=== PATIENT | female | born 2000 | race African-American/Black ===

== ENCOUNTER 2018-03-09 23:26 | Emergency (ER) | payer OTHER, SELFPAY ==
--- NOTE | 2018-03-10 06:36 | RAD ---
SECOND DIGIT LEFT HAND THREE VIEWS: INDICATIONS: Injury with pain. FINDINGS: There is no fracture or dislocation of the second digit, left hand. No radiopaque foreign body. IMPRESSION: No acute osseous abnormality of the left second digit. POS: [facility]
== END 2018-03-10 00:50 | disposition home or self-care (01) ==
LOC: SCSER 23:26
DX: S67.191A Crushing injury of left index finger, initial encounter (principal); S60.122A Contusion of left index finger with damage to nail, initial encounter; W22.8XXA Striking against or struck by other objects, initial encounter
CPT/HCPCS: 11740

== ENCOUNTER 2018-06-25 14:56 | Emergency (ER) | payer SELFPAY ==
[2018-06-25] MEDS ORDERED: Morphine 2 MG/ML SYRINGE ONE (15:17)
--- NOTE | 2018-06-25 15:43 | RAD ---
LEFT KNEE THREE VIEWS: INDICATIONS: Left leg deformity. COMPARISON: None. FINDINGS: There is lateral subluxation of the patella. The left knee is held in a flexed position. No definit e acute fracture is evident, within the limitations of the exam. IMPRESSION: Lateral subluxation/dislocation of the patella. POS: [facility]
--- NOTE | 2018-06-25 16:34 | RAD ---
FOUR VIEWS LEFT KNEE: Comparison: None. History: Reduction of dislocation. Comparison: 06-25-18 at 2:15 p.m. FINDINGS: Four views of the left knee shows reduction of the previously seen patellar dislocation. No fracture is seen. No knee effusion is seen. IMPRESSION: Reduction of patellar dislocation. POS: [facility]
== END 2018-06-25 17:13 | disposition home or self-care (01) ==
LOC: ERS 14:56
DX: S83.015A Lateral dislocation of left patella, initial encounter (principal); F31.9 Bipolar disorder, unspecified; W22.8XXA Striking against or struck by other objects, initial encounter
CPT/HCPCS: 96374; J2270

== ENCOUNTER 2018-08-14 00:05 | Emergency (ER) | payer SELFPAY ==
[2018-08-14] MEDS ORDERED: Lidocaine 1% w/Epinephrine 1:100K 20 ML VIAL ONE (01:40)
== END 2018-08-14 02:11 | disposition home or self-care (01) ==
LOC: ERS 00:05
DX: S01.81XA Laceration without foreign body of other part of head, initial encounter (principal); F31.9 Bipolar disorder, unspecified; Y00.XXXA Assault by blunt object, initial encounter
CPT/HCPCS: 12011; J2001

== ENCOUNTER 2019-01-23 22:56 | Emergency (ER) | payer SELFPAY | END 2019-01-23 23:53 | disposition home or self-care (01) | LOC: SCSER 22:56 | DX: L03.113 Cellulitis of right upper limb (principal); F31.9 Bipolar disorder, unspecified | CPT/HCPCS: 99283 ==

== ENCOUNTER 2019-04-22 07:22 | Emergency (ER) | payer SELFPAY | END 2019-04-22 08:33 | disposition home or self-care (01) | LOC: ERS 07:22 | DX: K60.2 Anal fissure, unspecified (principal); F31.9 Bipolar disorder, unspecified | CPT/HCPCS: 99283 ==

== ENCOUNTER 2019-06-15 13:03 | Emergency (ER) | payer SELFPAY | END 2019-06-15 14:20 | disposition home or self-care (01) | LOC: ERS 13:03 | DX: L08.1 Erythrasma (principal); F31.9 Bipolar disorder, unspecified | CPT/HCPCS: 36416; 99283 ==

== ENCOUNTER 2022-03-15 07:50 | Emergency (ER) | payer SELFPAY ==
[2022-03-15 08:12] LABS: #Eosinphils 0.2 thou/uL (0.0-0.7); #Lymphocytes 2.2 thou/uL (1.20-3.40); #Monocytes 0.6 thou/uL (0.11-0.59); #Neutrophils 3.9 thou/uL (1.40-6.50); %Basophils 0.4 % (0.0-1.0); %Eosinophils 3.3 % (0.0-10.0); %Lymphocytes 31.9 % (21.0-51.0); %Monocytes 8.3 % (0.0-10.0); %Neutrophils 56.1 % (42.0-75.0); Hemoglobin 13.1 g/dL (12.0-16.0); Mean Corpuscular HGB CONC 32.4 g/dL (32.0-36.0); Mean Corpuscular Volume 92.5 fL (78.0-98.0); Mean Platelet Volume 7.1 fL (7.4-10.4); Platelet Count 373 thou/uL (130-400); RBC Distribution Width 11.2 % (11.5-14.5); Red Blood Cell (RBC) Count 4.38 mill/uL (4.20-5.40); White Blood Cell (WBC) Count 6.9 thou/uL (4.8-10.8)
[2022-03-15] MEDS ORDERED: Famotidine/PF 20 mg/2ml Vial ONE (08:27)
[2022-03-15] MEDS ORDERED: Dicyclomine 20 MG/2 ML VIAL ONE (08:27)
[2022-03-15] MEDS ORDERED: Ketorolac Tromethamine 30 MG/ML VIAL ONE (08:27)
[2022-03-15 08:32] LABS: ALT (SGPT) 14 U/L (8-55); AST (SGOT) 16 U/L (5-34); Albumin 4.2 g/dL (3.5-5.0); Alkaline Phosphatase 65 U/L (40-110); Anion Gap 13 mmol/L (10-20); BUN (Urea Nitrogen) 10 mg/dL (7.0-18.7); Bilirubin, Total 0.3 mg/dL (0.2-1.2); Calc. Creatinine Clearance 0 mL/min (70-130); Carbon Dioxide 21 mmol/L (22-29); Chloride 105 mmol/L (98-107); Estimated GFR 118; Globulin 3.3 g/dL (2.4-3.5); Glucose 93 mg/dL (70-105); Lipase 23 U/L (8-78); Potassium 3.9 mmol/L (3.5-5.1); Protein, Total 7.5 g/dL (6.0-8.3); Sodium 135 mmol/L (136-145)
[2022-03-15 08:40] LABS: BHCG - Serum Negative (NEGATIVE); Pregs Control Background? CLEAR/WHITE (CLR/WHITE); Pregs Control Bar Appear? YES (CONTROL BAR)
[2022-03-15 08:55] LABS: Bilirubin Negative (Negative); Blood, Urine Negative (Negative); Clarity Clear (Clear); Glucose, Urine (Dipstick) Normal (Negative); Ketone, Urine Negative (Negative); Leukocyte Negative Leu/uL (Negative); Nitrite Negative (Negative); Protein, Urine (Dipstick) Negative (Neg-Trace); Specific Gravity, Urine 1.027 (1.002-1.036); Urobilinogen Normal mg/dL (Less than 2)
== END 2022-03-15 09:45 | disposition home or self-care (01) ==
LOC: ERS 07:50
DX: K29.70 Gastritis, unspecified, without bleeding (principal)
CPT/HCPCS: 36415; 76705; 80053; 81003; 83690; 84703; 85025; 94760; 96372; 96374; 96375; J1885; S0028

== ENCOUNTER 2022-05-10 07:29 | Emergency (ER) | payer SELFPAY ==
[2022-05-10 09:22] LABS: SARS-CoV-2 NAA Rapid Test Not Detected (NotDetected)
== END 2022-05-10 08:47 | disposition home or self-care (01) ==
LOC: ERS 07:29
DX: I88.9 Nonspecific lymphadenitis, unspecified (principal); Z20.822 Contact with and (suspected) exposure to COVID-19
CPT/HCPCS: 87081; 87430; 99283